=== PATIENT | male | born 1955 | race Caucasian/White ===

== ENCOUNTER 2025-01-17 14:20 | Emergency (ER) | payer OTHER, SELFPAY ==
[2025-01-17 14:26] VITALS: BP 144/83
[2025-01-17 14:48] LABS: Hematocrit 42.3 % (39.0-52.0); Hemoglobin 14.3 g/dL (13.0-18.0); Mean Corp Hgb Conc. 33.8 g/dL (33.0-37.0); Mean Corpuscular Volume 90.0 fL (80.0-94.0); Nucleated Red Blood Cells % 0 % (-); Platelet Count 177 10^3/uL (130-400); Red Cell Dist. Width 12.6 % (11.5-14.5)
[2025-01-17 15:00] LABS: ALT (SGPT) 28 U/L (0-50); AST (SGOT) 28 U/L (17-59); Albumin 4.5 g/dl (3.5-5.0); Alkaline Phosphatase 57 U/L (38-126); Blood Urea Nitrogen 19 mg/dl (9-20); Calcium 9.7 mg/dl (8.4-10.2); Carbon Dioxide 31 mmol/L (22-30); Chloride 105 mmol/L (98-107); Glucose 96 mg/dl (70-99); Potassium 4.4 mmol/L (3.5-5.1); Sodium 142 mmol/L (135-145); Total Protein 7.4 g/dl (6.3-8.2); eGFR > 60.00
[2025-01-17 15:10] LABS: Troponin I < 0.012 ng/ml
[2025-01-17 17:15] VITALS: BP 149/78
[2025-01-17 17:22] VITALS: BP 149/78; BMI 28.1
--- NOTE | 2025-01-17 17:38 | ED.GENMED ---
History of Present Illness
General
Chief Complaint: Fainting/Passed Out
Source: patient and spouse
Exam Limitations: none
Time Seen by Provider: 01/17/25 16:50
Nursing documentation reviewed up to this point in time: agreed with
History of Present Illness
History of Present Illness:
69-year-old male hypertension hypercholesterolemia nondrinker non-smoker he has had trouble swallowing for years today had trouble swallowing water sounds like he coughed believes he had a tonic-clonic seizure after he hit the ground no tongue
bite, no bowel or bladder incontinence, his voice appears hoarse, does not a new issue states he saw ENT previously for a deviated septum, has had no fevers, he is back to his baseline and would like to go home
Past History
Past History
ED Past Medical History: HTN and Hypercholesterolemia
Social History
Tobacco: Non-smoker
Alcohol: None
Drug: None
Personal:
Living: with family
Employment: Retired
Review of Systems
Review of Systems
All Other Systems: Not applicable
Constitutional: Denies fever or fatigue
EENT: Reports sore throat
Respiratory: Reports cough
Cardiac: Reports syncope
: Reports no symptoms
Musculoskeletal: Reports no symptoms
Neurological: Reports other (Possible seizure)
Phy Exam
Physical Exam
Physical Exam:
Physical Exam
General: no apparent distress, not acutely ill
Neck: No tongue bite voice is a bit hoarse
Heart: s1/s2 regular rate and rhythm, no murmur. equal radial pulses.
Lungs: no acute respiratory distress. clear bilaterally
Abdomen: normal bowel sounds. not tender. no CVAT
Neuro: alert and oriented. no focal neurological deficits
Skin: no rash
Psychiatric: well kept. interactive and cooperative
Extremities: no edema.
Course
Orders/Labs/Results
Orders:
Orders
01/17/25 14:21
Electrocardiogram (*1) Urgent
Reason for Study: Chest Pain
EKG- Treatment ONCE
01/17/25 14:32
Complete Blood Count/With Diff Urgent
Comprehensive Metabolic Panel Urgent
Troponin I Urgent
01/17/25 17:38
CT Head W/o Iv Contrast Urgent
Comment:
Reason For Exam: fall trauma new seizrfue
CT Neck With Iv Contrast Urgent
Comment:
Reason For Exam: diffiicllty swallowing
01/17/25 19:34
Amoxicillin [Amoxil] 500 mg PO NOW STA
Dexamethasone Sod Phosphate [Decadron] 10 mg IV NOW STA
Abnormal Lab Results
01/17/25
14:32
WBC 4.7 L 10^3/uL
(4.8-10.8)
Absolute Lymphs (auto) 0.8 L 10^3/uL
(1.2-3.4)
Lymphocytes % 17.6 L %
(20.5-51.1)
Carbon Dioxide 31 H mmol/L
(22-30)
01/17/25 14:32
01/17/25 14:32
Vital Signs
Initial and Last Documented VS:
Initial Vital Signs
Temp Pulse Resp BP Pulse Ox
98.7 F 78 15 144/83 98
01/17/25 14:26 01/17/25 14:26 01/17/25 14:26 01/17/25 14:26 01/17/25 14:26
Last Documented Vital Signs
Temp Pulse Resp BP Pulse Ox
97.6 F 55 15 142/80 96
01/17/25 17:22 01/17/25 19:30 01/17/25 19:30 01/17/25 19:19 01/17/25 19:30
MDM/Problems Addressed
Differential Diagnosis Includes:
Syncope seizure sore throat airway obstruction
MDM/Problems Addressed:
Sore throat syncope possible seizure
Acute Exacerbation and/or Progression of Chronic Illness: HTN
*Pulse Oximetry
SaO2: 96
Oxygen Mode of Delivery: Room air
Patient hypoxic: no
*Critical Care Note
Total Time (30-74mins, 75-104mins- exclusive of procedures): Not Applicable
Update Note
Update Note:
Patient with no history of seizure witnessed thinks it looks like a seizure will check CT head labs CT of his neck,
No bowel or bladder incontinence no tongue bite, could be syncope of vasovagal with myoclonus
CT noted, will have the patient follow-up with PCP neurologist, reviewed with patient and spouse not convinced this was a seizure in light of his history physical CAT scan findings
ED Attending Note
-
Portions of this chart may have been created with voice recognition software.� Occasional wrong word or��sound alike� substitutions may have occurred due to the inherent limitations of voice recognition software.
Discharge Plan
Departure
Patient Disposition: Home (Routine Discharge)
Date of Disposition: 01/17/25
Time of Disposition: 19:56
Patient with high blood pressure during this ER visit?: No
Discharge Problem:
Syncope and collapse, Pharyngitis
Instructions: Syncope (Fainting) (DC), Sinusitis in adults - ED (DC)
Prescriptions:
New
methylprednisolone [Medrol (Gregory)] 4 mg tablets,dose pack
See Rx Instructions .ROUTE .COMPLEX Qty: 21 0RF
Rx Instructions:
for 6 days
amoxicillin 500 mg tablet
500 mg PO TID 10 Days Qty: 30 0RF
No Action
lisinopril 10 mg Tablet
10 mg PO DAILY
rosuvastatin [Crestor] 10 mg Tablet
10 mg PO DAILY
Referrals:
q [Other]
Apolinar Gaston MD [Non-Admitting Privileges, Orthopedics]
Maricel Eastman MD [Non-Admitting Privileges, Psychiatry] - Next open appointment
Nohemy Meng MD [Family Provider, Internal Medicine] - Next open appointment
Yaya Chavira MD [Active, Neurology] - Next open appointment
Interventions
Interventions:
*Risk Screen - Suicide Last Done: 01/17/25 14:26
*General Assessment Last Done: 01/17/25 14:26
*Neglect/Abuse Screening Last Done: 01/17/25 14:26
*ED- Fall Risk Assessment Last Done: 01/17/25 17:22
*ED COVID-19 Vaccine History Last Done: 01/17/25 14:26
ED- Cardiac Assessment Last Done: 01/17/25 17:22
ED- Neurological Assessment Last Done: 01/17/25 17:22
Discharge Date and Time
Print Language: SLOVAK
[2025-01-17 19:19] VITALS: BP 142/80
[2025-01-17 20:00] VITALS: BP 140/79
[2025-01-17] MEDS: AMOXIL 500 MG PO (20:06)
[2025-01-17] MEDS: DECADRON 10 MG IV (20:06)
== END 2025-01-17 20:18 | disposition home or self-care (01) ==
LOC: EMR 14:20
PROVIDERS: Emergency Medicine; EMERGENCY PHYSICIAN Emergency Medicine; FAMILY PHYSICIAN Family Medicine
DX: R55 Syncope and collapse (principal); J02.9 Acute pharyngitis, unspecified; I10 Essential (primary) hypertension; E78.00 Pure hypercholesterolemia, unspecified
CPT/HCPCS: 99284; 96374; 70450; 70491; 80053; 84484; 85025; 93005; Q9967